=== PATIENT | male | born 1975 | race Caucasian/White ===

== ENCOUNTER 2016-12-16 10:24 | Emergency (ER) | payer OTHER ==
[~2016-12-16] VITALS: Ht 185.4 cm; Wt 113.4 kg
[~2016-12-16 10:24] MED LIST: IBUP800T PO
[2016-12-16 10:33] VITALS: BP 136/85
--- NOTE | 2016-12-16 10:39 | ED.ADGEN ---
Past History Past Medical History: Other Past Surgical History: Other Alcohol Use: None Drug Use: None Adult General Chief Complaint Chief Complaint abdominal pain HPI HPI Patient is a 41 year old male who presents with left lower abdominal pain, intermittently worsening, over last 3 days. Abrupt onset, denies previous similar symptoms. No nausea or vominting, no fevers. No prior abdominal surgeries. some radiation of pain to the groin, denies dysuria, hematuria, penile or testicular pain. No known h/o renal stones, not attempted any symptom controlling medication. Reports weakened urine stream from normal. Review of Systems Review of Systems Constitutional: Denies fever or chills [] Eyes: Denies change in visual acuity, redness, or eye pain [] HENT: Denies nasal congestion or sore throat [] Respiratory: Denies cough or shortness of breath [] Cardiovascular: denies chest pain GI: Denies nausea, vomiting, bloody stools , reports some few loose stools : Denies dysuria or hematuria [] Musculoskeletal: Denies back pain or joint pain [] Integument: Denies rash or skin lesions [] Neurologic: Denies headache, focal weakness or sensory changes [] Endocrine: Denies polyuria or polydipsia [] Current Medications Current Medications Current Medications Medications (Trade) Dose Ordered Sig/John Start Time Stop Time Status Last Admin Dose Admin Iohexol (Omnipaque 300 Mg/ml) 75 ml 1X ONCE 12/16/16 11:30 12/16/16 11:31 DC 12/16/16 11:27 75 ML Ketorolac Tromethamine (Toradol) 30 mg 1X ONCE 12/16/16 11:00 12/16/16 11:01 DC 12/16/16 11:28 30 MG Ondansetron HCl (Zofran) 4 mg 1X ONCE 12/16/16 11:00 12/16/16 11:01 DC 12/16/16 11:28 4 MG Allergies Allergies Allergies Coded Allergies Type Severity Reaction Last Updated Verified No Known Drug Allergies 01/14/16 No Physical Exam Physical Exam Constitutional: Well developed, well nourished, no acute distress, non-toxic appearance. [] HENT: Normocephalic, atraumatic, bilateral external ears normal, oropharynx moist, no oral exudates, nose normal. [] Eyes: PERRLA, EOMI, conjunctiva normal, no discharge. [] Neck: Normal range of motion, no tenderness, supple, no stridor. [] Cardiovascular:Heart rate regular with regular rhythm, no murmur [] Lungs & Thorax: Bilateral breath sounds clear to auscultation [] Abdomen: Bowel sounds normal, soft, ttp in suprapubic and LLQ, no guarding or peritoneal signs Skin: Warm, dry, no erythema, no rash. [] Back: No tenderness, no CVA tenderness. [] Extremities: No tenderness, no cyanosis, no clubbing, ROM intact, no edema. [] Neurologic: Alert and oriented X 3, normal motor function, normal sensory function, no focal deficits noted. [] Psychologic: Affect normal, judgement normal, mood normal. [] Current Patient Data Vital Signs Vital Signs Date Time Temp Pulse Resp B/P Pulse Ox O2 Delivery O2 Flow Rate FiO2 12/16/16 10:33 97.8 80 20 98 Room Air Lab Results Laboratory Tests Test 12/16/16 10:40 12/16/16 10:53 12/16/16 11:06 Urine Collection Type Unknown Urine Color Yellow Urine Clarity Clear Urine pH 7.0 Urine Specific [place] <=1.005 Urine Protein Neg (NEG-TRACE) Urine Glucose (UA) Negmg/dL (NEG) Urine Ketones (Stick) Negmg/dL (NEG) Urine Blood Trace (NEG) Urine Nitrite Neg (NEG) Urine Bilirubin Neg (NEG) Urine Urobilinogen Dipstick 0.2mg/dL (0.2 mg/dL) Urine Leukocyte Esterase Neg (NEG) Urine RBC 0/HPF (0-2) Urine WBC 0/HPF (0-4) Urine Squamous Epithelial Cells Occ/LPF Urine Bacteria 0/HPF (0-FEW) White Blood Count 9.1x10^3/uL (4.0-11.0) Red Blood Count 4.85x10^6/uL (4.30-5.70) Hemoglobin 14.8g/dL (13.0-17.5) Hematocrit 43.4% (39.0-53.0) Mean Corpuscular Volume 90fL (79-100) Mean Corpuscular Hemoglobin 30pg (25-35) Mean Corpuscular Hemoglobin Concent 34g/dL (31-37) Red Cell Distribution Width 12.8% (11.5-14.5) Platelet Count 214x10^3/uL (140-400) Neutrophils (%) (Auto) 64% (31-73) Lymphocytes (%) (Auto) 26% (24-48) Monocytes (%) (Auto) 8% (0-9) Eosinophils (%) (Auto) 2% (0-3) Basophils (%) (Auto) 1% (0-3) Neutrophils # (Auto) 5.8x10^3uL (1.8-7.7) Lymphocytes # (Auto) 2.4x10^3/uL (1.0-4.8) Monocytes # (Auto) 0.7x10^3/uL (0.0-1.1) Eosinophils # (Auto) 0.1x10^3/uL (0.0-0.7) Basophils # (Auto) 0.1x10^3/uL (0.0-0.2) Lipase 57U/L (73-393) L POC Hemoglobin 14.6gm/dL POC Hematocrit 43% POC Sodium 141mmol/L (135-145) POC Potassium 3.9mmol/L (3.5-5.0) POC Chloride 101mmol/L (98-110) POC Total CO2 28mmol/L (23-32) Anion Gap 17mmol/L (6-14) H POC Blood Urea Nitrogen 16mg/dL (8-26) POC Creatinine 1.0mg/dL (0.5-1.4) Glucose Level 96mg/dL (60-99) POC Ionized Calcium ([place]) 1.22mmol/L (1.13-1.32) EKG EKG [] Radiology/Procedures Radiology/Procedures CT abd/pelvis: IMPRESSION: 1. Mild nonspecific paracolic inflammation at the junction of the descending colon and sigmoid colon. No underlying inflamed diverticulum or epiploic appendage is seen. Has there been trauma to this region? Other diagnostic considerations include focal intraperitoneal fat infarction or inflammation due to underlying focal colitis. CT follow-up is suggested, if clinically indicated. 2. Trace amount of free fluid in the pelvis. [] Course & Med Decision Making Course & Med Decision Making Pertinent Labs and Imaging studies reviewed. (See chart for details) pt given IV fluids, toradol, istat chem and cbc, urine dip ordered. Patient feeling better. I reviewed the CT scan and spoke with Dr. Reese. He agrees with treatment antibiotics and the patient has any recurrent worsening of pain he should return to the ER for repeat CT scan of his abdomen. dc'd with 7 days gloria and bonnie Final Impression Final Impression abdominal pain [] Problems: Dragon Disclaimer Dragon Disclaimer This electronic medical record was generated, in whole or in part, using a voice recognition dictation system. LENORA BALTAZAR MD Dec 16, 2016 10:39
[2016-12-16] MEDS ORDERED: KETOROLAC 30 MG/ML VIAL. IV ONE (11:00)
[2016-12-16] MEDS ORDERED: ONDANSETRON PF 4 MG/2 ML VIAL. IV ONE (11:00)
[2016-12-16 11:10] LABS: BASO # 0.1 x10^3/uL (0.0-0.2); BASO % 1 % (0-3); EOS # 0.1 x10^3/uL (0.0-0.7); EOS % 2 % (0-3); HEMATOCRIT 43.4 % (39.0-53.0); HEMOGLOBIN 14.8 g/dL (13.0-17.5); LYMPH # 2.4 x10^3/uL (1.0-4.8); LYMPH % 26 % (24-48); MEAN CORPUSCULAR HEMOGLOBIN 30 pg (25-35); MEAN CORPUSCULAR HGB CONC 34 g/dL (31-37); MEAN CORPUSCULAR VOLUME 90 fL (79-100); MONO # 0.7 x10^3/uL (0.0-1.1); MONO % 8 % (0-9); NEUT # 5.8 x10^3uL (1.8-7.7); NEUT % 64 % (31-73); PLATELET COUNT 214 x10^3/uL (140-400); RED BLOOD COUNT 4.85 x10^6/uL (4.30-5.70); RED CELL DISTRIBUTION WIDTH 12.8 % (11.5-14.5); WHITE BLOOD COUNT 9.1 x10^3/uL (4.0-11.0)
[2016-12-16 11:10] LABS: HEMOGLOBIN ISTAT 14.6 gm/dL; POTASSIUM ISTAT 3.9 mmol/L (3.5-5.0)
[2016-12-16] MEDS ORDERED: IOHEXOL 300 MG/ML 75 ML VIAL. IV ONE (11:30)
--- NOTE | 2016-12-16 11:59 | RAD ---
CT of the abdomen and pelvis with contrast, 12/16/2016: History: Left lower quadrant pain Multidetector CT imaging was performed following an IV bolus injection of iodinated contrast material. No oral contrast material was administered for this exam. The liver is unremarkable. No gallbladder abnormality is seen. The pancreas is unremarkable. The spleen is of normal size. No renal or adrenal abnormality is detected. The abdominal aorta is unremarkable. No retroperitoneal, iliac or inguinal adenopathy is evident. Several small mesenteric lymph nodes are noted without evidence of pathologic enlargement. There is mild streaky increased density in the paracolic fat at the junction of the descending colon and sigmoid colon. No definite underlying diverticula, mass or discrete fluid collection is seen. There is no evidence of bowel obstruction. There is a trace amount of free fluid in the pelvis. No free intraperitoneal air is present. The appendix is visualized and shows no abnormality. IMPRESSION: 1. Mild nonspecific paracolic inflammation at the junction of the descending colon and sigmoid colon. No underlying inflamed diverticulum or epiploic appendage is seen. Has there been trauma to this region? Other diagnostic considerations include focal intraperitoneal fat infarction or inflammation due to underlying focal colitis. CT follow-up is suggested, if clinically indicated. 2. Trace amount of free fluid in the pelvis. PQRS Compliance Statement: One or more of the following individualized dose reduction techniques were utilized for this examination: 1. Automated exposure control 2. Adjustment of the mA and/or kV according to patient size 3. Use of iterative reconstruction technique
[2016-12-16 12:03] LABS: BACTERIA,URINE 0 /HPF (0-FEW); BILIRUBIN,URINE NEG (NEG); CLARITY,URINE CLEAR; COLOR,URINE YELLOW; GLUCOSE,URINE NEG (NEG); NITRITE,URINE NEG (NEG); RBC,URINE 0 /HPF (0-2); SQUAMOUS EPITHELIAL CELL,UR OCC /LPF; UROBILINOGEN,URINE 0.2 mg/dL (0.2 mg/dL); WBC,URINE 0 /HPF (0-4)
[2016-12-16] MEDS ORDERED: METR500T PO (12:59)
[2016-12-16] MEDS ORDERED: CIPR500T94 PO (12:59)
[2016-12-16] MEDS ORDERED: IBUP800T PO (13:00)
== END 2016-12-16 13:10 | disposition home or self-care (01) ==
LOC: ER 10:24
DX: R10.32 Left lower quadrant pain (principal)
CPT/HCPCS: 36415; 74177; 80047; 81001; 83690; 85027; 96374; 96375; 99285; J1885; J2405; Q9967